=== PATIENT | male | born 1955 | race African-American/Black ===

== ENCOUNTER → 2016-03-26 | Day surgery (SDC) | payer OTHER ==
[~2016-03-26] VITALS: Ht 182.9 cm; Wt 90.7 kg
[~2016-03-26] MED LIST: ADVAIR 250-501 EACH INH; ZYRTEC10 M3 PO
--- NOTE | 2016-03-26 18:26 | Operative Report ---
Operative/Inv Procedure Report Surgery Date: 03/26/16 Name of Procedure: Left hydrocelectomy Pre-Operative Diagnosis: Left hydrocele Post-Operative Diagnosis: Same Estimated Blood Loss: scant Surgeon/Reflector Driller And Deburrer: SUSAN WILSON MD Anesthesia: laryngeal mask airway Drains: None Specimens: Left hydrocele sac Complications: None Condition: Stable Operative Indication: Enlarging left hydrocele Operative/Procedure Note Note: The patient was taken to the operating room and identified. He was placed in supine position on the operating table. A timeout was executed appropriately with the patient awake. Gen. anesthesia was induced via LMA. He was then prepped and draped in usual fashion for scrotal surgery. Surgical pause was executed appropriately. A transverse skin incision was made in the left hemiscrotum. Layers of the scrotal wall were incised to the tunica vaginalis was exposed. Using blunt dissection adhesions the tunica vaginalis were broken and the left hydrocele extruded from the left hemiscrotum. Blunt dissection cremaster fibers were dissected off of the hydrocele sac. Sac was then opened and a large amount of clear fluid obtained. Excess tunica vaginalis was excised using the Bovie. The free edge of tunica vaginalis was then oversewn with a 2-0 chromic running interlocking suture. Hemostasis on the spermatic cord and anterior scrotal wall was then controlled using electrocautery. No significant bleeding was noted at this time. The left testicle was placed back in the left hemiscrotum. The incision was closed in 2 layers. The first layer was the dartos and was a running interlocking 2-0 chromic suture. The skin was closed with 2-0 interrupted sutures. Patient tolerated the procedure well and as completion was taken recovery in stable condition. Findings: Moderate-sized left hydrocele Discharge Disposition: PACU
== END ==
LOC: STS 00:59
DX: N43.3 Hydrocele, unspecified (principal); Z87.891 Personal history of nicotine dependence
CPT/HCPCS: 88302; J0690